=== PATIENT | male | born 1995 | race Caucasian/White ===

== ENCOUNTER 2017-03-26 18:10 | Emergency (ER) | payer OTHER ==
[~2017-03-26] VITALS: Ht 182.9 cm; Wt 90.7 kg
--- NOTE | 2017-03-26 18:25 | NUR ---
PT REFUSES ACCUCHECK AT THIS POINT. PT SAYS THAT [facility] DID IT A FEW MINUTES AGO AND HE THINKS HE IS OK NOW.
[2017-03-26] MEDS ORDERED: INSU100V7 SQ (18:33)
[2017-03-26] MEDS ORDERED: IV NORMAL SALINE 1000 ML BAG IV ONE (19:15)
--- NOTE | 2017-03-26 19:19 | NUR ---
Received report from MINA Moralez. Assumed care of pt at this time. Pt resting in position of comfort for self. No complaints at this time.
[2017-03-26 19:43] LABS: CARBON DIOXIDE 29 mmol/L (21-32); CHLORIDE 102 mmol/L (98-107); GLUCOSE 119 mg/dL (74-106); POTASSIUM 3.8 mmol/L (3.5-5.1); UREA NITROGEN, BLOOD 10 mg/dL (7-18)
[2017-03-26 19:45] LABS: BASOPHILS # (AUTO) 0.1 K/uL (0.0-8.0); BASOPHILS % (AUTO) 0.7 % (0.0-2.0); EOSINOPHILS # (AUTO) 0.1 K/uL (0.0-0.7); EOSINOPHILS % (AUTO) 0.8 % (0.0-7.0); HEMATOCRIT 45.7 % (40-50); HEMOGLOBIN 15.9 G/DL (14.0-18.0); LYMPHOCYTES # (AUTO) 1.7 K/UL (0.8-4.8); LYMPHOCYTES % (AUTO) 18.9 % (20.5-51.5); MEAN CORPUSCULAR HEMOGLOBIN 30.5 UUG (27.0-31.0); MEAN CORPUSCULAR HGB CONC 35 g/dL (32.0-37.0); MEAN CORPUSCULAR VOLUME 87.6 FL (82.0-92.0); MONOCYTES # (AUTO) 0.5 K/UL (0.1-1.30); MONOCYTES % (AUTO) 5.9 % (0.0-11.0); NEUTROPHILS # (AUTO) 6.8 K/UL (1.8-8.9); NEUTROPHILS % (AUTO) 73.7 % (38.5-71.5); PLATELET COUNT (AUTO) 297 K/UL (150-450); RED BLOOD CELL COUNT(AUTO) 5.22 MIL/UL (4.7-6.1); WHITE BLOOD COUNT (AUTO) 9.1 K/UL (4.0-11.2)
[2017-03-26 19:49] LABS: ALANINE AMINOTRANSFERASE 25 U/L (16-63); ALKALINE PHOSPHATASE 94 U/L (50-136); ASPARTATE AMINOTRANSFERASE 10 U/L (15-37); BILIRUBIN,DIRECT 0.1 mg/dL (0.0-0.2); BILIRUBIN,TOTAL 0.3 mg/dL (0.2-1.0)
[2017-03-26 19:50] LABS: ACETAMINOPHEN < 2.0 ug/mL (10-30)
--- NOTE | 2017-03-26 19:50 | NUR ---
Pt to and from CT via [employer]. Pt resting in position of comfort for self. No complaints at this time. Fluid bolus infusing freely to gravity.
[2017-03-26 19:56] LABS: THYROID STIMULATING HORMONE 1.134 mIU/mL (0.358-3.740)
[2017-03-26 19:57] LABS: ETHANOL < 3 MG/DL (0-0)
--- NOTE | 2017-03-26 20:34 | NUR ---
SPOKE WITH STACIE FROM [facility]. INFORMED THEM DR FARR IS READY TO SPEAK WITH [facility] FOR ADMISSION. WAITING FOR [facility] TO CALL BACK
--- NOTE | 2017-03-26 20:46 | NUR ---
SARAH speaking with [facility] (Dr. Fair).
--- NOTE | 2017-03-26 20:55 | NUR ---
First liter of three completed. Second liter now infusing freely to gravity. Pt conts resting in position of comfort for self, resp even and unlabored. Father at bedside and informed me that they want to refuse the lumbar puncture. Dr. Olson notified.
--- NOTE | 2017-03-26 21:22 | NUR ---
Pt ambulated to and from br with steady gait. Denies dizziness, denies lightheadedness.
[2017-03-26 21:27] LABS: *BILIRUBIN,URIN NEGATIVE (NEGATIVE); *BLOOD, URINE NEGATIVE (NEGATIVE); *CLARITY,URINE CLEAR (CLEAR); *COLOR,URINE YELLOW (YELLOW); *KETONES,URINE NEGATIVE (NEGATIVE); *PROTEIN,URINE NEGATIVE (NEGATIVE); *UROBILINOGEN,URINE 0.2 E.U./dl (NORMAL); LEUKOCYTE ESTERASE ,URINE NEGATIVE (NEGATIVE); NITRITE, URINE NEGATIVE (NEGATIVE); PH,URINE 7.5 (5.0-8.0); UGLUCOSE NEGATIVE (NEGATIVE)
[2017-03-26 21:37] LABS: SQUAMOUS EPITHELIAL CELL,UR FEW /HPF (NONE SEEN)
[2017-03-26 21:38] LABS: MUCUS,URINE FEW /LPF (0-FEW)
[2017-03-26 21:39] LABS: *AMPHETAMINE, URINE NEGATIVE (NEGATIVE); *BARBITURATE, URINE NEGATIVE (NEGATIVE); *CANNABINOID, URINE POSITIVE (NEGATIVE); *COCCAINE, URINE NEGATIVE (NEGATIVE); *OPIATE, URINE NEGATIVE (NEGATIVE); *PHENCYCLIDINE SCREEN,URINE NEGATIVE (NEGATIVE)
--- NOTE | 2017-03-26 21:42 | NUR ---
Dr. Olson into speak with pt.
--- NOTE | 2017-03-26 22:04 | NUR ---
pt given water and crackers, tolerating well. Awaiting call back from [facility] for bed information
--- NOTE | 2017-03-26 23:30 | NUR ---
[facility] transport at bedside. Report called to MINA Vale at [facility]. Preparing to transfer pt.
== END 2017-03-26 23:36 | disposition short-term general hospital (02) ==
LOC: ER 18:11
DX: R55 Syncope and collapse (principal); E10.9 Type 1 diabetes mellitus without complications; Z79.4 Long term (current) use of insulin
CPT/HCPCS: 36415; 70450; 71010; 72125; 80048; 80076; 80307; 81001; 82140; 82962; 83605; 84443; 84484; 85025; 85730; 87040 ×2; 87086; 93005; 96360; 96361; 99291; A4663; G0480 ×2; G0481; J7030 ×3; 70030-TC

== ENCOUNTER 2020-11-26 08:54 | Emergency (ER) | payer OTHER ==
[~2020-11-26] VITALS: Ht 185.4 cm; Wt 90.7 kg
[~2020-11-26 08:54] MED LIST: INSU100V7 SQ
[2020-11-26] MEDS ORDERED: HUMALOG (09:09)
[2020-11-26] MEDS ORDERED: AZIT500T2 PO (09:09)
--- NOTE | 2020-11-26 09:24 | NUR ---
COVID SWAB DONE
[2020-11-26] MEDS ORDERED: IV NORMAL SALINE 1000 ML BAG IV ONE (09:45)
[2020-11-26] MEDS ORDERED: ONDANSETRON 4 MG/2 ML VIAL IV ONE (09:45)
--- NOTE | 2020-11-26 09:45 | NUR ---
PATIENT AWARE OF RESULTS OF COVID TEST.
[2020-11-26 09:50] LABS: HEMATOCRIT 49.8 % (36.7-47.1); MEAN CORPUSCULAR HEMOGLOBIN 29.8 uug (23.8-33.4); MEAN CORPUSCULAR VOLUME 88.4 fL (73.0-96.2); PLATELET COUNT (AUTO) 189 K/uL (152-348)
[2020-11-26] MEDS ORDERED: ONDANSETRON 4 MG/2 ML VIAL ONE (09:53)
[2020-11-26] MEDS ORDERED: DEXAMETHASONE SOD PHOSPHATE 4 MG INJ IV ONE (10:00)
[2020-11-26] MEDS ORDERED: DEXAMETHASONE SOD PHOSPHATE 10 MG INJ ONE (10:04)
[2020-11-26 10:10] LABS: CREATININE 1.1 mg/dL (0.6-1.3); POTASSIUM 4.1 mmol/L (3.5-5.1)
[2020-11-26 10:22] LABS: BILIRUBIN,DIRECT 0.2 mg/dL (0.0-0.2); BILIRUBIN,TOTAL 0.5 mg/dL (0.2-1.0)
--- NOTE | 2020-11-26 11:00 | NUR ---
PATIENT STATES NAUSEA HAS DIMINISHED.
--- NOTE | 2020-11-26 11:08 | NUR ---
IV removed. Catheter intact and site benign. Pressure and 4x4 gauze applied to site. No bleeding noted.
--- NOTE | 2020-11-26 11:08 | NUR ---
DC, RX (INCLUDING PRECAUTIONS AND INSTRUCTIONS) AND FOLLOW UP INSTRUCTIONS GIVEN AND EXPLAINED TO PATIENT WHO STATES HE UNDERSTANDS ALL INSTRUCTIONS.
== END 2020-11-26 11:14 | disposition home or self-care (01) ==
LOC: ER 08:54
DX: U07.1 COVID-19 (principal); J12.82 Pneumonia due to coronavirus disease 2019; E10.65 Type 1 diabetes mellitus with hyperglycemia; Z79.4 Long term (current) use of insulin
CPT/HCPCS: 36415; 71045; 80048; 80076; 83605; 83690; 85025; 87426; 96361; 96374; 96375; 99284; J1100; J2405; A4663; J7030

== ENCOUNTER 2022-03-25 03:04 | Emergency (ER) | payer OTHER ==
[~2022-03-25] VITALS: Ht 182.9 cm; Wt 99.8 kg
[~2022-03-25 03:04] MED LIST changes: +AZIT500T2 PO; +HUMALOG
--- NOTE | 2022-03-25 03:30 | NUR ---
Seen and examined by Dr. Pelayo.
[2022-03-25] MEDS ORDERED: BLOO-1730 MC (03:34)
--- NOTE | 2022-03-25 03:41 | NUR ---
Patient discharged to home in stable condition. Written and verbal after care instructions given. Patient verbalizes understanding of instructions. Stressed follow up or return to ER for worsening s/s.
[2022-03-25 03:47] VITALS: BP 122/80
== END 2022-03-25 04:01 | disposition home or self-care (01) ==
LOC: ER 03:04
DX: A63.0 Anogenital (venereal) warts (principal); E10.9 Type 1 diabetes mellitus without complications; Z79.4 Long term (current) use of insulin; E07.9 Disorder of thyroid, unspecified
CPT/HCPCS: A4663